=== PATIENT | female | born 1990 | race Caucasian/White ===

== ENCOUNTER 2017-02-17 23:29 | Emergency (ER) | payer MEDICAID ==
[2017-02-18 01:09] VITALS: BP 121/84
[2017-02-18] MEDS ORDERED: cefTRIAXone 1 GM in Sodium Chloride 0.9% 50 ML IV ONE (01:19)
[2017-02-18] MEDS ORDERED: Ketorolac 30 MG/ML SDV IVPUSH ONE (01:19)
[2017-02-18] MEDS ORDERED: Sodium Chloride 0.9% 1,000 ML IV SCH (01:30)
--- NOTE | 2017-02-18 02:48 | EDM.PDOC ---
ED HPI GENERAL MEDICAL PROBLEM - General Chief Complaint: Flank Pain Stated Complaint: RT SIDE/BACK PAIN Time Seen by Provider: 02/17/17 23:41 Source of Information: Reports: Patient, Family (Mom), RN Notes Reviewed History Limitations: Reports: No Limitations - History of Present Illness INITIAL COMMENTS - FREE TEXT/NARRATIVE: bladder infection; this is a 26 year old female presents to ER for bladder infection. She has had symptoms since Tuesday (5 days), was seen in Urgent Care clinic, started on Septra DS, she took one dose. comes to the ER because of increasing bladder pain. has chills, no fever . Onset: Gradual Duration: Getting Worse Location: Reports: Abdomen Quality: Reports: Ache Severity: Moderate Improves with: Reports: None Worsens with: Reports: None Context: Reports: Other (illness) Associated Symptoms: Reports: Fever/Chills (chills only), Malaise Right Flank Pain Score (Numeric/FACES): 7 - Related Data Allergies Allergy/AdvReac Type Severity Reaction Status Date / Time morphine Allergy Difficulty Verified 02/18/17 00:57 Breathing Home Meds: Home Meds Ibuprofen [Advil Liqui-Gels] 200 mg PO Q4HR PRN 01/06/16 [History] Levonorgestrel [Crista] 1 device IU ASDIRECTED 02/18/17 [History] Sulfamethoxazole/Trimethoprim [Sulfamethoxazole-Tmp Ds Tablet] 1 each PO BID [History] Past Medical History Other HEENT History: recurring tonsilitis and ear infections Cardiovascular History: Reports: Blood Clots/VTE/DVT Respiratory History: Reports: PE Genitourinary History: Reports: UTI, 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: , 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 Musculoskeletal History: Reports: Arthritis Neurological History: Reports: Migraines Psychiatric History: Reports: Addiction, Anxiety, Depression Hematologic History: Reports: Other (See Below) Other Hematologic History: factor V lieden Immunologic History: Reports: Other (See Below) Other Immunologic History: antiphospholipid syndrome - Infectious Disease History Infectious Disease History: Reports: Chicken Pox - Past Surgical History Musculoskeletal Surgical History: Reports: Other (See Below) Other Musculoskeletal Surgeries/Procedures:: discectomy Social & Family History - Family History Family Medical History: Unobtainable - Tobacco Use Smoking Status *Q: Current Every Day Smoker Years of Tobacco use: 15 Packs/Tins Daily: 0.7 Used Tobacco, but Quit: No Second Hand Smoke Exposure: No - Caffeine Use Caffeine Use: Reports: Coffee, Soda - Alcohol Use Days Per Week of Alcohol Use: 2 Number of Drinks Per Day: 2 Total Drinks Per Week: 4 - Recreational Drug Use Recreational Drug Use: No Drug Use in Last 12 Months: No - Living Situation & Occupation Living situation: Reports: Single ED ROS GENERAL - Review of Systems Review Of Systems: See Below Constitutional: Reports: Chills HEENT: Reports: No Symptoms Respiratory: Reports: No Symptoms Cardiovascular: Reports: No Symptoms Endocrine: Reports: No Symptoms GI/Abdominal: Reports: No Symptoms : Reports: Discharge, Dysuria, Frequency, Pain, Urgency Musculoskeletal: Reports: No Symptoms Skin: Reports: No Symptoms Neurological: Reports: No Symptoms Psychiatric: Reports: No Symptoms Hematologic/Lymphatic: Reports: No Symptoms Immunologic: Reports: No Symptoms ED EXAM, GI/ABD - Physical Exam Exam: See Below Exam Limited By: No Limitations General Appearance: WD/WN, No Apparent Distress Eyes: Bilateral: Normal Appearance, EOMI Ears: Normal External Exam, Normal Canal, Hearing Grossly Normal, Normal TMs Nose: Normal Inspection, Normal Mucosa, No Blood Throat/Mouth: Normal Inspection, Normal Lips, Normal Teeth, Normal Gums, Normal Oropharynx, Normal Voice, No Airway Compromise Head: Atraumatic Neck: Normal Inspection, Supple, Non-Tender, Full Range of Motion Respiratory/Chest: Lungs Clear, Normal Breath Sounds, Chest Non-Tender Cardiovascular: Normal Peripheral Pulses, Regular Rate, Rhythm GI/Abdominal: Normal Bowel Sounds, Soft, Non-Tender (Female) Exam: Deferred Rectal (Female) Exam: Deferred Course - Vital Signs Last Recorded V/S: Last Vital Signs Temp 36.4 C 02/18/17 01:00 Pulse 95 02/18/17 01:00 Resp 16 02/18/17 01:00 BP 121/84 02/18/17 01:00 Pulse Ox 97 02/18/17 01:00 - Orders/Labs/Meds Orders: Active Orders 24 hr Category Date Time Status Sodium Chloride 0.9% [Normal Saline] 1,000 ml Med 02/18/17 01:30 Active IV ASDIRECTED Medication Orders Sodium Chloride (Normal Saline) 1,000 mls @ 999 mls/hr IV ASDIRECTED CHAUNCEY Last Admin: 02/18/17 01:29 Dose: 999 mls/hr Labs: Laboratory Tests 02/18/17 02/18/17 02/18/17 Range/Units 01:20 01:20 01:58 WBC 12.3 H (4.5-11.0) K/uL RBC 4.41 (3.30-5.50) M/uL Hgb 14.7 D (12.0-15.0) g/dL Hct 43.3 (36.0-48.0) % MCV 98 (80-98) fL MCH 33 H (27-31) pg MCHC 34 (32-36) % Plt Count 259 (150-400) K/uL Neut % (Auto) 75 H (36-66) % Lymph % (Auto) 14 L (24-44) % Bradley % (Auto) 9 H (2-6) % Eos % (Auto) 1 L (2-4) % Baso % (Auto) 1 (0-1) % Sodium 137 L (140-148) mmol/L Potassium 4.0 (3.6-5.2) mmol/L Chloride 104 (100-108) mmol/L Carbon Dioxide 23 (21-32) mmol/L Anion Gap 14.0 (5.0-14.0) mmol/L BUN 12 (7-18) mg/dL Creatinine 0.8 (0.6-1.0) mg/dL Est Cr Clr Drug Dosing 86.60 mL/min Estimated GFR (MDRD) > 60 (>60) Glucose 98 (74-106) mg/dL Calcium 8.6 (8.5-10.1) mg/dL Total Bilirubin 0.2 (0.2-1.0) mg/dL AST 13 L (15-37) U/L ALT 15 (12-78) U/L Alkaline Phosphatase 85 (46-116) U/L Total Protein 7.3 (6.4-8.2) g/dL Albumin 3.4 (3.4-5.0) g/dL Globulin 3.9 H (2.3-3.5) g/dL Albumin/Globulin Ratio 0.9 L (1.2-2.2) Urine Color Yellow Urine Appearance Cloudy Urine pH 6.5 (4.5-8.0) Ur Specific [place] 1.015 (1.008-1.030) Urine Protein 30 H (NEGATIVE) mg/dL Urine Glucose (UA) Normal (NEGATIVE) mg/dL Urine Ketones Negative (NEGATIVE) mg/dL Urine Occult Blood Large (NEGATIVE) Urine Nitrite Negative (NEGATIVE) Urine Bilirubin Negative (NEGATIVE) Urine Urobilinogen Normal (NORMAL) mg/dL Ur Leukocyte Esterase Large (NEGATIVE) Urine RBC 20-30 H (0-5) Urine WBC Semi-packed H (0-5) Ur Epithelial Cells Moderate Amorphous Sediment Few Urine Bacteria Few Urine Mucus Few Urine Other See note Urinalysis Comment Clue cells seen Urine HCG, Qual 02/18/17 Range/Units 01:58 WBC (4.5-11.0) K/uL RBC (3.30-5.50) M/uL Hgb (12.0-15.0) g/dL Hct (36.0-48.0) % MCV (80-98) fL MCH (27-31) pg MCHC (32-36) % Plt Count (150-400) K/uL Neut % (Auto) (36-66) % Lymph % (Auto) (24-44) % Bradley % (Auto) (2-6) % Eos % (Auto) (2-4) % Baso % (Auto) (0-1) % Sodium (140-148) mmol/L Potassium (3.6-5.2) mmol/L Chloride (100-108) mmol/L Carbon Dioxide (21-32) mmol/L Anion Gap (5.0-14.0) mmol/L BUN (7-18) mg/dL Creatinine (0.6-1.0) mg/dL Est Cr Clr Drug Dosing mL/min Estimated GFR (MDRD) (>60) Glucose (74-106) mg/dL Calcium (8.5-10.1) mg/dL Total Bilirubin (0.2-1.0) mg/dL AST (15-37) U/L ALT (12-78) U/L Alkaline Phosphatase (46-116) U/L Total Protein (6.4-8.2) g/dL Albumin (3.4-5.0) g/dL Globulin (2.3-3.5) g/dL Albumin/Globulin Ratio (1.2-2.2) Urine Color Urine Appearance Urine pH (4.5-8.0) Ur Specific [place] (1.008-1.030) Urine Protein (NEGATIVE) mg/dL Urine Glucose (UA) (NEGATIVE) mg/dL Urine Ketones (NEGATIVE) mg/dL Urine Occult Blood (NEGATIVE) Urine Nitrite (NEGATIVE) Urine Bilirubin (NEGATIVE) Urine Urobilinogen (NORMAL) mg/dL Ur Leukocyte Esterase (NEGATIVE) Urine RBC (0-5) Urine WBC (0-5) Ur Epithelial Cells Amorphous Sediment Urine Bacteria Urine Mucus Urine Other Urinalysis Comment Urine HCG, Qual Negative Meds: Medications Generic Name Dose Route Start Last Admin Trade Name Freq PRN Reason Stop Dose Admin Sodium Chloride 1,000 mls @ 999 mls/hr 02/18/17 01:30 02/18/17 01:29 Normal Saline IV 999 mls/hr ASDIRECTED CHAUNCEY Administration Discontinued Medications Generic Name Dose Route Start Last Admin Trade Name Freq PRN Reason Stop Dose Admin Ceftriaxone Sodium 1 gm/ 50 mls @ 100 mls/hr 02/18/17 01:19 02/18/17 01:40 Sodium Chloride IV 02/18/17 01:48 100 mls/hr ONETIME ONE Administration Ketorolac Tromethamine 30 mg 02/18/17 01:19 02/18/17 01:37 Toradol IVPUSH 02/18/17 01:20 30 mg ONETIME ONE Administration - Re-Assessments/Exams Free Text/Narrative Re-Assessment/Exam: 02/18/17 02:48 given one liter of Normal Saline IV fluids, Toradol 30 mg IV, Rocephin 1 gram IV; improved and ready for discharge urine ; packed WBC, RBC, +Clue cells 02/18/17 02:54 Departure - Departure Time of Disposition: 02:49 Disposition: Home, Self-Care 01 Condition: Good Clinical Impression: UTI, Urinary tract infectious disease, BV (bacterial vaginosis) - Discharge Information Forms: ED Department Discharge Care Plan Goals: bladder infection -continue Septra DS one by mouth every morning and night -start Pyrdium 200mg take three times a day for bladder pain -start Metronizole 500mg take one two times a day for 7 days -as needed Toradol 10mg every 8 hours as needed for pain -push fluids, 8 to 10 glasses of water per day await results of urine culture return to Clinic for recheck in 7 to 10 days return to ER if has increased pain, fever, chills, nausea, vomiting, rash or not improved. - Problem List & Annotations (1) BV (bacterial vaginosis) SNOMED Code(s): 563469738 Code(s): N76.0 - ACUTE VAGINITIS; B96.89 - OTH BACTERIAL AGENTS THE CAUSE OF DISEASES CLASSD [id number] Status: Acute Priority: High Current Visit: Yes (2) UTI, Urinary tract infectious disease SNOMED Code(s): 94905842 Code(s): N39.0 - URINARY TRACT INFECTION, SITE NOT SPECIFIED Status: Acute Priority: High Current Visit: Yes - Problem List Review Problem List Initiated/Reviewed/Updated: Yes - My Orders Last 24 Hours: My Active Orders 02/18/17 01:30 Sodium Chloride 0.9% [Normal Saline] 1,000 ml IV ASDIRECTED - Assessment/Plan Last 24 Hours: My Active Orders 02/18/17 01:30 Sodium Chloride 0.9% [Normal Saline] 1,000 ml IV ASDIRECTED Plan: bladder infection -continue Septra DS one by mouth every morning and night -start Pyrdium 200mg take three times a day for bladder pain -start Metronizole 500mg take one two times a day for 7 days -as needed Toradol 10mg every 8 hours as needed for pain -push fluids, 8 to 10 glasses of water per day await results of urine culture return to Clinic for recheck in 7 to 10 days return to ER if has increased pain, fever, chills, nausea, vomiting, rash or not improved.
== END 2017-02-18 03:07 | disposition home or self-care (01) ==
LOC: JP.ED 23:29
DX: N39.0 Urinary tract infection, site not specified (principal); N76.0 Acute vaginitis; M19.90 Unspecified osteoarthritis, unspecified site; G43.909 Migraine, unspecified, not intractable, without status migrainosus; F17.210 Nicotine dependence, cigarettes, uncomplicated; Z87.440 Personal history of urinary (tract) infections; Z86.718 Personal history of other venous thrombosis and embolism; Z88.5 Allergy status to narcotic agent
CPT/HCPCS: 36415; 80053; 81001; 81025; 85025; 96361; 96365; 96375; 99284; J0696; J1885; J7040; J7050

== ENCOUNTER 2023-02-16 16:37 | Emergency (ER) | payer MEDICAID, OTHER, SELFPAY ==
[2023-02-16 17:27] LABS: BASOPHILS ABSOLUTE AUTO 0.05 K/uL (0.00-0.10); BASOPHILS PERCENT AUTO 0.5 % (0.1-1.3); EOSINOPHILS ABSOLUTE AUTO 0.16 K/uL (0.00-0.40); EOSINOPHILS PERCENT AUTO 1.5 % (0.0-5.4); HEMATOCRIT 45.3 % (34.3-46.0); HEMOGLOBIN 15.8 g/dL (11.2-15.5); IMMATURE GRAN PERCENT AUTO 0.1 % (0.0-0.7); LYMPHOCYTES ABSOLUTE AUTO 0.99 K/uL (0.8-3.3); LYMPHOCYTES PERCENT AUTO 9.2 % (11.4-47.7); MEAN CORPUSCULAR HEMOGLOBIN 33.1 pg (31.6-35.5); MEAN CORPUSCULAR HGB CONC 34.9 g/dL (31.6-35.5); MEAN CORPUSCULAR VOLUME 94.8 fL (81.4-99.0); MONOCYTES ABSOLUTE AUTO 0.55 K/uL (0.20-0.90); MONOCYTES PERCENT AUTO 5.1 % (3.3-12.6); NEUTROPHILS ABSOLUTE AUTO 9.03 K/uL (1.0-7.6); NEUTROPHILS PERCENT AUTO 83.6 % (40.0-78.1); PLATELET COUNT,PLT 313 K/uL (130-375); RED BLOOD CELL COUNT 4.78 M/uL (3.77-5.24); WHITE BLOOD CELL COUNT,WBC 10.8 K/uL (3.2-11.0)
[2023-02-16] MEDS: Sodium Chloride 0.9% 1,000 ML IV ONE (17:29)
[2023-02-16] MEDS: Sodium Chloride 0.9% 10 ML Syringe FLUSH PRN (17:29)
[2023-02-16] MEDS: Pantoprazole 40 MG Vial IVPUSH ONE (17:29)
[2023-02-16 17:32] LABS: IMMATURE GRAN ABSOLUTE AUTO 0.01 K/uL (0.00-0.23)
[2023-02-16 17:46] LABS: PROTHROMBIN TIME 10.3 sec (9.2-10.6); PTT,PARTIAL THROMBOPLSTIN TIME 26.2 sec (21.8-27.3)
[2023-02-16 18:00] LABS: A/G RATIO 1.1 (1.2-2.2); ALANINE AMINOTRANSFERASE,ALT 56 U/L (12-78); ALBUMIN 3.8 g/dL (3.4-5.0); ALKALINE PHOSPHATASE 69 U/L (46-116); ASPARTATE AMNIOTRANSFERASE,AST 23 U/L (15-37); BILIRUBIN TOTAL 0.5 mg/dL (0.2-1.0); BLOOD UREA NITROGEN,BUN 15 mg/dL (7-18); CALCIUM 8.8 mg/dL (8.5-10.1); CARBON DIOXIDE,CO2 23 mmol/L (21-32); CHLORIDE,CL 103 mmol/L (100-108); CREATININE 0.7 mg/dL (0.6-1.0); EST CRCL DRUG DOSING (CG) 93.68 mL/min; ESTIMATED GFR 116 mL/min (>60); GLUCOSE RANDOM 105 mg/dL (74-106); POTASSIUM,K 3.6 mmol/L (3.6-5.2); PROTEIN TOTAL,TP 7.2 g/dL (6.4-8.2); SODIUM,NA 137 mmol/L (140-148)
[2023-02-16 18:02] LABS: ANION GAP 14.6 mmol/L (5.0-14.0)
[2023-02-16] MEDS: Sodium Chloride 0.9% 75 ML IV SCH (18:10)
[2023-02-16] MEDS: Sodium Chloride 0.9% 10 ML Syringe FLUSH ONE (18:10)
[2023-02-16] MEDS: Iopamidol 755 Mg/ML 100 ML Bottle IV SCH (18:10)
[2023-02-16 19:55] VITALS: BP 114/82; PULSE 85
== END 2023-02-16 21:32 | disposition home or self-care (01) ==
LOC: JP.ED 16:37
DX: K52.9 Noninfective gastroenteritis and colitis, unspecified (principal); F17.210 Nicotine dependence, cigarettes, uncomplicated; Z88.5 Allergy status to narcotic agent
CPT/HCPCS: 36415; 74174; 80053; 81025; 83605; 85025; 85610; 85730; 86850; 86900; 86901; 96361; 96374; 99284; C9113; J3490; J7030; Q9967